=== PATIENT | female | born 1965 | race African-American/Black ===

== ENCOUNTER 2017-10-27 12:26 | Emergency (ER) | payer OTHER ==
[2017-10-27] MEDS: KETOROLAC 60 MG/2 ML INJ. IM (13:00)
[2017-10-27] MEDS: oxyCODONE/APAP 10/325 1 TAB TABLET PO (13:19)
== END 2017-10-27 14:56 | disposition home or self-care (01) ==
LOC: ER 14:56
DX: M25.512 Pain in left shoulder (principal); I12.9 Hypertensive chronic kidney disease with stage 1 through stage 4 chronic kidney disease, or unspecified chronic kidney disease; N18.9 Chronic kidney disease, unspecified; E03.9 Hypothyroidism, unspecified; F31.9 Bipolar disorder, unspecified; Z88.5 Allergy status to narcotic agent; Z91.040 Latex allergy status
CPT/HCPCS: 73030; 99284

== ENCOUNTER 2019-03-27 06:20 | Day surgery (SDC) | payer OTHER ==
[~2019-03-27] VITALS: Ht 175.3 cm; Wt 88.5 kg
[~2019-03-27 06:20] MED LIST: ALPR1TAB5 PO; BIMA2.5D EACHEYE; BUPR150T6 PO; CLON2TAB9 PO; CYAN100031 INJ; DICL100G18 TP; ESCITALOPRAM OX10 MG PO; ESTR1TAB76 PO; HYDR-2761 PO; HYDR10TA2 PO; HYDR50CA2 PO; L.AC1CAP6 PO; LAMO100T8 PO; LEVO125T5 PO; OLME1TAB31 PO; OMEP40CA45 PO; ONDA4TAB10 SL; OXYC1TAB15 PO; PROM25TA10 PO; RABE20TA18 PO; TELM1TAB2 PO; TOPI50TA8 PO; TRAZ300T2 PO; VALA500T PO; VENL75CA6 PO; ZIPR40CA2 PO; ZOLP12.52 PO; estrogen patch
[2019-03-27] MEDS ORDERED: IV RINGERS,LACTATED 1000ML 1,000 ML IV SCH (07:00)
[2019-03-27] MEDS ORDERED: fentaNYL PF VIAL 100 MCG/2 ML VIAL IV PRN (07:00)
[2019-03-27] MEDS ORDERED: LIDOCAINE 1% PF 2 ML VIAL. ID PRN (07:00)
[2019-03-27] MEDS ORDERED: LIDOCAINE 1%/EPI 1:100,000 20 ML VIAL. ONE (07:13)
[2019-03-27] MEDS ORDERED: ONDANSETRON PF 4 MG/2 ML VIAL. IVP ONE ×2 (07:15→10:30)
[2019-03-27] MEDS ORDERED: SCOPOLAMINE 1.5MG PATCH. TD ONE (07:15)
[2019-03-27] MEDS ORDERED: MIDAZOLAM HCL/PF 2 MG/2 ML VIAL. IV ONE ×2 (07:15→07:45)
[2019-03-27] MEDS ORDERED: MIDAZOLAM HCL/PF 2 MG/2 ML VIAL. ONE (07:16)
[2019-03-27] MEDS ORDERED: ePHEDrine PF IN SALINE 50 MG/10 ML SYRINGE. IV ONE (07:58)
[2019-03-27] MEDS ORDERED: PROPOFOL 60 ML IV ONE (07:58)
[2019-03-27] MEDS ORDERED: DEXAMETHASONE SOD PHOS 4 MG/ML VIAL ONE ×2 (08:00→08:07)
[2019-03-27] MEDS ORDERED: SEVOFLURANE 31 TO 60 MINUTES. IH ONE (08:00)
[2019-03-27] MEDS ORDERED: LIDOCAINE 2% PF 5 ML VIAL. ONE (08:00)
[2019-03-27] MEDS ORDERED: ceFAZolin 2GM PREMIX 2 GM/50 ML BAG IV ONE (08:00)
[2019-03-27] MEDS ORDERED: BUPIVACAINE MPF 0.25% 10 ML VIAL. ONE (08:04)
[2019-03-27] MEDS ORDERED: EPINEPHrine 1 MG/ML VIAL ONE (08:04)
[2019-03-27] MEDS ORDERED: BUPIVACAINE MPF 0.25% 30 ML VIAL. ONE (08:07)
--- NOTE | 2019-03-27 08:56 | PDOC4 ---
Operative Note Operative Note Operative Note: Preoperative Diagnosis: Left flank mass Postoperative Diagnosis: Same Procedure: Excision of left flank mass Surgeon: Abel Supervisor [employer]: Tamika SCHULZ Anesthesia: Gen. EBL: 25 mL Specimen: Left flank mass to pathology, 9 X 5 cm Drains: None Complications: None Indication: The patient is a 54-year-old female who is referred with a left flank mass. 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 Despite considerable time the mass has remained and the patient would like to proceed with excision given that it is symptomatic. The risks of surgery were discussed which include bleeding, infection, recurrence, pain, anesthetic risk, potential need for additional surgery or procedure. She understands and would like to proceed. Description: The patient was taken to the operating room and placed supine on the operating table. Gen. anesthesia was performed. She was then rolled with her left side up on the operating table. The left flank was prepped with ChloraPrep and draped in a standard surgical manner. An incision was made with a scalpel in the skin lines directly overlying the mass. Cautery dissection was carried down into the subcutaneous tissues. The mass rested in the deep subcutaneous tissues and showed a fibrotic capsule. We began mobilizing the mass from the surrounding subcutaneous tissues. There was a weak spot of the capsule and we were able to drain old hematoma fluid which helped with decompression. The capsule of the mass was then fully mobilized from the surrounding tissues and measured approximately 9 x 5 cm. The mass was sent to pathology for evaluation. Several small bleeding spots were controlled with cautery. Hemostasis was then good. The deep subcutaneous cutaneous tissue was approximated with 0 Vicryl. The superficial subcutaneous tissues closed with 3-0 Vicryl. Skin was approximated with 4-0 Monocryl. The incision was infiltrated with half percent Marcaine with epinephrine. Steri-Strips and a sterile dressing were then applied. The patient tolerated the procedure well and was sent to the recovery room in stable condition. At the end of the case all counts were correct. ROSE RIOS MD Mar 27, 2019 08:56
--- NOTE | 2019-03-27 08:59 | DISCH ---
DISCHARGE INSTRUCTIONS Condition on Discharge Condition on Discharge: Stable Activity After Discharge Activity Instructions for Disc: Resume previous activity, Other, see below Driving Instructions after Dis: Other, see below (no driving if taking pain meds) Diet after Discharge Diet after Discharge: Regular Wound Incision Care Wound/Incision Care: Other, see below (keep dressing clean and dry X 72 hours, may then remove and shower) Follow-Up Follow up with: Dr Rios in 2 weeks, call for appt [phone] ROSE RIOS MD Mar 27, 2019 08:59
[2019-03-27] MEDS ORDERED: fentaNYL PF VIAL 100 MCG/2 ML VIAL ONE (09:11)
[2019-03-27] MEDS: fentaNYL PF VIAL 100 MCG/2 ML VIAL IV PRN ×2 (09:18→09:55)
[2019-03-27] MEDS ORDERED: PROCHLORPERAZINE 10 MG/2 ML VIAL. ONE (09:18)
[2019-03-27] MEDS ORDERED: HYDR-3164 PO (09:20)
[2019-03-27] MEDS: PROCHLORPERAZINE 10 MG/2 ML VIAL. IV PRN ×2 (09:30→09:55)
[2019-03-27 09:50] VITALS: BP 131/75
[2019-03-27] MEDS ORDERED: HYDROcodone/APAP 5/325MG 1 TAB TABLET PO ONE (10:30)
[2019-03-27] MEDS ORDERED: HEPARIN PF 500 UNIT/5 ML DISP.SYRIN. IVP ONE (10:30)
--- NOTE | 2019-03-29 15:07 | PATHOLOGY ---
[facility] Accession Number: [id number] . 01 Material submitted: . flank - LEFT FLANK MASS. Modifiers: left . 01 Clinical history: . Left flank mass . 02 Diagnosis: Skin and subcutaneous tissue, excision left flank mass: - Organizing fat necrosis, with cystic degeneration, fibrosis, chronic inflammation, and foreign body granulomatous reaction. (JPM:[facility] 03/29/2019) [facility] 03/29/2019 1354 Local . 02 Comment: There is no evidence of malignancy. (JPM:[facility] 03/29/2019) . 02 Electronically signed: . Manuel Gonzalez MD, Pathologist NPI- [id number] . 01 Gross description: . The specimen is received in formalin, labeled "Keren Evans, left flank mass". Received is a segment of yellow-smith fibroadipose tissue measuring 9.2 x 4.8 x 3.9 cm in greatest dimensions. Sectioning reveals a previous ruptured cystic cavity measuring 6.7 x 3.9 x 1.5 cm filled with blood-tinged fluid and friable material. The cyst koehler are smooth to granular in appearance, and measure up to 0.2 cm in thickness. A single papillary excrescence is identified measuring 2.1 cm in length. No additional nodules or lesions are noted grossly. The specimen is submitted representatively in cassettes A1 and A2. ([facility]; 03/27/2019) QA/QA 03/27/2019 1734 Local . 02 Pathologist provided ICD-10: L08.9, M79.89 . 02 CPT . 804223 Specimen Comment: A courtesy copy of this report has been sent to [phone], [phone] Specimen Comment: [id number] Specimen Comment: Report sent to and Performed at: 01 [facility] [address], [place], [place] [id number] MD Oscar Don MD Phone: [phone] Performed at: 02 [facility] [address] [place], [place] [id number] MD Manuel Gonzalez MD Phone: [phone]
== END 2019-03-27 10:45 | disposition home or self-care (01) ==
LOC: SURG 06:20
PROVIDERS: ATTEND Surgery
DX: R22.2 Localized swelling, mass and lump, trunk (principal); L90.5 Scar conditions and fibrosis of skin; L08.89 Other specified local infections of the skin and subcutaneous tissue; G47.30 Sleep apnea, unspecified; K21.9 Gastro-esophageal reflux disease without esophagitis; H40.9 Unspecified glaucoma; F31.9 Bipolar disorder, unspecified; I12.9 Hypertensive chronic kidney disease with stage 1 through stage 4 chronic kidney disease, or unspecified chronic kidney disease; N18.9 Chronic kidney disease, unspecified; E66.3 Overweight; Z68.28 Body mass index [BMI] 28.0-28.9, adult; Z90.49 Acquired absence of other specified parts of digestive tract; Z90.710 Acquired absence of both cervix and uterus; Z90.721 Acquired absence of ovaries, unilateral; Z87.2 Personal history of diseases of the skin and subcutaneous tissue
CPT/HCPCS: 11406; 12034; A7015; J0171; J0696; J0780; J1100; J2001; J2250; J2405; J2704; J3010; J3490; 88305